=== PATIENT | female | born 1940 | race Caucasian/White ===

== ENCOUNTER 2018-09-24 14:58 | Emergency (ER) | payer MEDICARE ==
[~2018-09-24 14:58] MED LIST: ROCURONIUM BROMIDE INJ 50 MG/5 ML VIAL IV ONE
[2018-09-24] MEDS ORDERED: NORMAL SALINE 1000 ML 1,000 ML IV ONE ×3 (15:14→16:33)
[2018-09-24 15:54] LABS: VENOUS BLOOD BASE EXCESS -11.7 mmol/L; VENOUS BLOOD HCO3 16.3 mmol/L (20-32); VENOUS BLOOD PCO2 44.7 mmHg (35-63)
--- NOTE | 2018-09-24 15:55 | RADIOLOGY REPORT (SQ) ---
EXAM DESCRIPTION: CHEST SINGLE VIEW COMPLETED DATE/TIME: 09/24/2018 3:46 pm REASON FOR STUDY: bed 12 sepsis protocol COMPARISON: None. EXAM PARAMETERS: NUMBER OF VIEWS: One view. TECHNIQUE: Single frontal radiographic view of the chest acquired. RADIATION DOSE: NA LIMITATIONS: None. FINDINGS: LUNGS AND PLEURA: No opacities, masses or pneumothorax. No pleural effusion. MEDIASTINUM AND HILAR STRUCTURES: No masses. Contour normal. HEART AND VASCULAR STRUCTURES: Moderate cardiomegaly BONES: No acute findings. HARDWARE: Old right shoulder replacement prosthesis OTHER: No other significant finding. IMPRESSION: Cardiomegaly. No acute findings TECHNICAL DOCUMENTATION: JOB ID: [id number]- All Rights Reserved Reading location - IP/workstation name: [email or web address]
[2018-09-24 15:56] LABS: VENOUS BLOOD PH 7.18 (7.30-7.42)
[2018-09-24 15:57] LABS: HEMATOCRIT 38.5 % (36.0-47.0); HEMOGLOBIN 12.8 g/dL (12.0-15.5); INTERNATIONAL RATION (INR) 1.31; MEAN CORPUSCULAR HGB CONC 33.2 g/dL (32.0-36.0); MEAN CORPUSCULAR VOLUME 96 fl (80-97); PLATELET COUNT 150 10^3/uL (150-450); PROTHROMBIN TIME 16.9 SEC (11.4-15.4); RED CELL DISTRIBUTION WIDTH 14.6 % (11.5-14.0); WHITE BLOOD COUNT 21.7 10^3/uL (4.0-10.5)
[2018-09-24 16:07] LABS: ALANINE AMINOTRANSFERASE 36 U/L (9-52); ALBUMIN 3.6 g/dL (3.5-5.0); ALKALINE PHOSPHATASE 58 U/L (38-126); ASPARTATE AMINO TRANSFERASE 52 U/L (14-36); BILIRUBIN,DIRECT 0.5 mg/dL (0.0-0.4); BILIRUBIN,TOTAL 0.5 mg/dL (0.2-1.3); BLOOD UREA NITROGEN 44 mg/dL (7-20); CALCIUM 9.3 mg/dL (8.4-10.2); CARBON DIOXIDE 15 mmol/L (22-30); CHLORIDE 105 mmol/L (98-107); CREATINE KINASE 541 U/L (30-135); GLUCOSE 146 mg/dL (75-110); POTASSIUM 4.6 mmol/L (3.6-5.0); SODIUM 139.8 mmol/L (137-145); TOTAL PROTEIN 6.4 g/dL (6.3-8.2)
[2018-09-24 16:19] LABS: CREATINE KINASE MB 4.76 ng/mL (<4.55)
[2018-09-24 16:22] LABS: ANION GAP 20 (5-19)
[2018-09-24 16:23] LABS: TROPONIN I < 0.012 ng/mL
[2018-09-24 16:30] LABS: ABSOLUTE LYMPHOCYTES# (MANUAL) 1.1 10^3/uL (0.5-4.7); ABSOLUTE MONOCYTES # (MANUAL) 0.9 10^3/uL (0.1-1.4); ABSOLUTE NEUTROPHILS# (MANUAL) 19.7 10^3/uL (1.7-8.2); BASOPHILS % (MANUAL) 0 % (0-2); EOSINOPHILS % (MANUAL) 0 % (0-6); LYMPHOCYTES % (MANUAL) 5 % (13-45); MONOCYTES % (MANUAL) 4 % (3-13); SEGMENTED NEUTROPHILS % (MAN) 67 % (42-78); TOTAL CELLS COUNTED 100
[2018-09-24 16:31] LABS: BAND NEUTROPHILS % (MANUAL) 18 % (3-5); PLATELET COMMENT ADEQUATE; TOXIC GRANULATION 2+; TOXIC VACUOLATION PRESENT
[2018-09-24] MEDS ORDERED: LEVOFLOXACIN 750 MG/D5W RTU 750 MG/150 ML RTUPB IV ONE (16:31)
[2018-09-24] MEDS ORDERED: CEFEPIME 2 GM/D5W RTU 2 GM/50 ML RTUPB IV ONE (16:31)
[2018-09-24 16:32] LABS: METAMYELOCYTES % (MANUAL) 6 % (0)
[2018-09-24] MEDS ORDERED: VANCOMYCIN HCL INJ 1000 MG VIAL IV ONE (16:32)
[2018-09-24] MEDS ORDERED: DEXTROSE 5%-WATER 250 ML with NOREPINEPHRINE BITARTRATE 4 MG IV PRN ×2 (16:33)
[2018-09-24] MEDS ORDERED: NOREPINEPHRINE BITARTRATE INJ/PF 4 MG/4 ML SDV IV ONE (16:42)
[2018-09-24 17:43] LABS: ARTERIAL BLOOD BASE EXCESS -14.7 mmol/L; ARTERIAL BLOOD H2CO3 1.06 mmol/L (1.05-1.35); ARTERIAL BLOOD HCO3 12.7 mmol/L (20-24); ARTERIAL BLOOD O2 SATURATION 98.5 % (94-98); ARTERIAL BLOOD PCO2 35.3 mmHg (35-45); ARTERIAL BLOOD PO2 152.3 mmHg (80-100); ARTERIAL BLOOD TOTAL CO2 13.8 mmol/L (21-25)
[2018-09-24 17:45] LABS: ARTERIAL BLOOD FIO2 40%
[2018-09-24 17:46] LABS: ARTERIAL BLOOD PH 7.18 (7.35-7.45)
[2018-09-24] MEDS ORDERED: MIDAZOLAM HCL 50 MG/100 ML RTUINJ ONE (18:49)
[2018-09-24] MEDS ORDERED: ETOMIDATE INJ/PF 20 MG/10 ML SDV IV ONE (19:48)
[2018-09-24] MEDS ORDERED: ROCURONIUM BROMIDE INJ 50 MG/5 ML VIAL IV ONE (19:48)
[2018-09-24 20:02] VITALS: BP 108/90
--- NOTE | 2018-09-24 20:14 | EKG REPORT ---
SEVERITY:- BORDERLINE ECG - SINUS TACHYCARDIA VENTRICULAR PREMATURE COMPLEX BORDERLINE RIGHT AXIS DEVIATION BORDERLINE T ABNORMALITIES, INFERIOR LEADS : Confirmed by: Jenny Villela MD 24-Sep-2018 20:13:43
--- NOTE | 2018-09-24 20:30 | ER Document Report ---
ED General - General Chief Complaint: Shortness Of Breath Stated Complaint: SHORTNESS OF BREATH Time Seen by Provider: 09/24/18 15:04 Primary Care Provider: JONE COOK PA-C [Primary Care Provider] - Follow up as needed TRAVEL OUTSIDE OF THE [place] IN LAST 30 DAYS: No - HPI Notes: Patient is a 78-year-old female brought in to the emergency department for evaluation of weakness. The patient was evidently seen here yesterday. She was complaining of some left hip pain. She was treated with Toradol and Ultram. Throughout the night she became dizzy. She was so weak she could not stand up. On further questioning the patient admits to having intermittent nausea and vomiting over the last several months. At this time she denies any pain of any sort. She states that she has no hip pain. She has some difficulty breathing. She denies any wheezing. She admits to some chills but has had no kyler fevers. No diarrhea. No cuts or rashes. - Related Data Allergies/Adverse Reactions: No Known Allergies Allergy (Verified 09/24/18 15:36) Past Medical History - General Information source: Patient, Relative - Social History Smoking Status: Former Smoker Chew tobacco use (# tins/day): No Frequency of alcohol use: None Drug Abuse: None Family History: Reviewed & Not Pertinent Patient has suicidal ideation: No Patient has homicidal ideation: No - Past Medical History Cardiac Medical History: Reports: Hx Hypercholesterolemia, Hx Hypertension Pulmonary Medical History: Reports: Hx Asthma Renal/ Medical History: Denies: Hx Peritoneal Dialysis Past Surgical History: Reports: Hx Abdominal Surgery - lap band, Hx Orthopedic Surgery - knee/right shoulder Review of Systems - Review of Systems Constitutional: Chills, Malaise, Weakness EENT: No symptoms reported Cardiovascular: No symptoms reported Respiratory: Short of breath Gastrointestinal: No symptoms reported Genitourinary: No symptoms reported Musculoskeletal: See HPI Skin: No symptoms reported Neurological/Psychological: No symptoms reported Physical Exam - Vital signs Vitals: Pulse Ox 91 L 09/24/18 15:15 Notes: Patient afebrile, hypotensive, tachycardic - Notes Notes: 78-year-old female appears her stated age in a moderate amount of distress. She is mildly tachypneic. She is pale and diaphoretic. She has some cyanosis in her nailbeds. Head is normocephalic and appears atraumatic. Pupils are equal, round, reactive to light. Oral mucosa is moist. Heart is tachycardic with normal S1-S2. She is mildly tachypneic, but lungs are clear to auscultation bilaterally. Abdomen is soft, nontender, normoactive bowel sounds. Extremities reveal no cyanosis or clubbing. No posterior calf tenderness. She has multiple surgical scars from knee replacements, fracture repair on the right. There is no signs of erythema, induration, or focal abscess. Peripheral pulses are diminished but equal. Patient is awake and alert, normal mentation. She is oriented x3. Cranial nerves II through XII are grossly intact without focal neurological deficits. Strength is plus 5 out of 5 bilateral upper and lower extremities. Sensation is intact. Reflexes symmetrical. Course - Re-evaluation Re-evalutation: 09/24/18 20:27 Patient presented to the emergency department for evaluation. Upon arrival she was found to be tachycardic and hypotensive. She was started on aggressive fluids. Her respiratory rate remained elevated. Laboratory investigations were consistent with sepsis. She was started on vancomycin, cefepime, Levaquin. She has obvious endorgan damage, as she denies any known history of chronic kidney disease. Labs were remarkable for a marked leukocytosis, and lactic acid of 4.3. An ABG with a pH of 7.18. She had a 15% bandemia. Her creatinine was 4.7 with a BUN of 44. Bicarb is low but potassium was within normal limits. Despite aggressive fluid resuscitation the patient remained hypotensive. Decision was made to start levophed. Holguin catheter was placed, no urine output was achieved. She was also placed on BiPAP, as her work of breathing seemed to increase. She tolerated this for some time, but was still intermittently tachypneic. At [address] Queen. She did have concerns about this patient's significant change in renal function and the possible need for dialysis. At this point we have no availability for dialysis. Given the severity of her illness she recommended transfer. I spoke with Dr. Ferrell, buckle attaching machine operator at [facility], at 1830. He did happily accept the patient. He asked that the patient's airway be secured given her intermittent tachypnea. Decision was made to intubate the patient. Please see separate procedure note. She tolerated this well. He also has a CT scan of the abdomen and pelvis be performed. This has been performed but not yet reviewed by radiology. Images will be pushed to [facility] for their consideration. Patient continues to receive IV fluids. Levophed has been titrated to keep patient's blood pressure above 95 systolic. We will transfer her to [facility] for further care via [facility] helicopter. - Vital Signs Vital signs: Temp Pulse Resp BP Pulse Ox 98.1 F 107 H 15 108/90 H 99 09/24/18 15:16 09/24/18 18:22 09/24/18 19:55 09/24/18 19:55 09/24/18 19:55 - Laboratory Result Diagrams: 09/24/18 15:25 09/24/18 15:25 Laboratory results interpreted by me: 09/24/18 09/24/18 09/24/18 15:25 15:25 15:25 WBC 21.7 H RDW 14.6 H Band Neutrophils % 18 H Lymphocytes % (Manual) 5 L Metamyelocytes % 6 H Abs Neuts (Manual) 19.7 H PT 16.9 H ABG pH ABG pO2 ABG HCO3 ABG Total CO2 ABG O2 Saturation VBG pH VBG HCO3 Carbon Dioxide 15 L Anion Gap 20 H BUN 44 H Creatinine 4.71 H Est GFR ( Amer) 11 L Est GFR (Non-Af Amer) 9 L Glucose 146 H POC Glucose Lactic Acid Direct Bilirubin 0.5 H AST 52 H Creatine Kinase 541 H CK-MB (CK-2) 09/24/18 09/24/18 09/24/18 15:25 15:25 15:25 WBC RDW Band Neutrophils % Lymphocytes % (Manual) Metamyelocytes % Abs Neuts (Manual) PT ABG pH ABG pO2 ABG HCO3 ABG Total CO2 ABG O2 Saturation VBG pH 7.18 L* VBG HCO3 16.3 L Carbon Dioxide Anion Gap BUN Creatinine Est GFR ( Amer) Est GFR (Non-Af Amer) Glucose POC Glucose Lactic Acid 4.3 H Direct Bilirubin AST Creatine Kinase CK-MB (CK-2) 4.76 H 09/24/18 09/24/18 09/24/18 15:34 17:30 19:25 WBC RDW Band Neutrophils % Lymphocytes % (Manual) Metamyelocytes % Abs Neuts (Manual) PT ABG pH 7.18 L* ABG pO2 152.3 H ABG HCO3 12.7 L ABG Total CO2 13.8 L ABG O2 Saturation 98.5 H VBG pH VBG HCO3 Carbon Dioxide Anion Gap BUN Creatinine Est GFR ( Amer) Est GFR (Non-Af Amer) Glucose POC Glucose 141 H Lactic Acid 2.9 H Direct Bilirubin AST Creatine Kinase CK-MB (CK-2) - Diagnostic Test Radiology reviewed: Image reviewed - Second chest x-ray reveals ET tube approximately 2 and half centimeters above dinesh, otherwise no change, as interpreted by myself without the aid of a radiologist, Reports reviewed - EKG Interpretation by Me Additional EKG results interpreted by me: 09/24/18 20:34 Sinus tachycardia with a rate of 109 bpm, PVC noted. Right bundle branch block with nonspecific ST changes. No old study available for comparison. Procedures - Intubation Orotracheal Airway evaluation: Normal anatomy Mallampati Classification: Class 3 Medications: Etomidate, Other Intubation method: Orotracheal - Rocuronium Blade type: Rodriguez Blade size: 3 Equipment used: Glidescope ETT size: 7.5 ETT secured at: Lips ETT secured at (cm): 22 Breath Sounds after Intubation: Equal End tidal CO2 confirmed: Yes Critical Care Note - Critical Care Note Total time excluding time spent on procedures (mins): 40 Discharge - Discharge Clinical Impression: Septic shock, Acute renal failure Condition: Serious Disposition: [facility] Admitting Provider: Dr. Ferrell Unit Admitted: ICU Referrals: JONE COOK PA-C [Primary Care Provider] - Follow up as needed
--- NOTE | 2018-09-24 21:10 | RADIOLOGY REPORT (SQ) ---
CT ABDOMEN PELVIS WITHOUT IV CONTRAST EXAM DATE: 09/24/2018 00:00 HISTORY: Abdominal pain. COMPARISON: None. TECHNIQUE: CT scan of the abdomen and pelvis was performed without IV contrast. This exam was performed according to our departmental dose-optimization program, which includes automated exposure control, adjustment of the mA and/or kV according to patient size and/or use of iterative reconstruction technique. FINDINGS: There is atelectasis/scarring at the lung bases. The liver, gallbladder, spleen, pancreas, and adrenal glands are normal. There is a 4 mm obstructing stone in the proximal left ureter with mild left hydronephrosis and left perinephric stranding. The right collecting system is patent. A Holguin catheter is seen in the urinary bladder. There has been a prior hysterectomy. There are scattered colonic diverticula without surrounding inflammatory changes. No small bowel obstruction. The appendix is not seen. Prior gastric surgery. There is an enteric catheter with the tip in the stomach. No intraperitoneal free air is identified. Trace fluid in the pelvis. There are mild degenerative changes of the spine. The aorta is normal caliber and contains atherosclerotic calcifications. Moderate levocurvature of the lumbar spine centered at L3. Degenerative changes of both hip joints. IMPRESSION: 4 mm obstructing stone in the proximal left ureter with left-sided inflammatory changes.
--- NOTE | 2018-09-24 21:28 | RADIOLOGY REPORT (SQ) ---
EXAM DESCRIPTION: X-ray single view chest. CLINICAL HISTORY: 78 years Female, post intubation COMPARISON: 09/24/2018 at 3:38 PM TECHNIQUE: Single (one) portable x-ray view of the chest performed on 09/24/2018 at 8:30 PM FINDINGS: The lungs are well expanded and are clear. There is no evidence of a pneumothorax. The cardiac silhouette is stable and appears enlarged. The cardiac silhouette may be partially accentuated by the portable technique. The mediastinal contours are normal. No acute osseous abnormality is identified. There are remote postsurgical changes of the right humerus. A right shoulder arthroplasty is noted. There appears to be scoliosis of the thoracolumbar spine. No focal soft tissue abnormalities are seen. Lines and tubes: An endotracheal tube is present which terminates approximately 1.5 cm above the dinesh. The feeding tube extends below the diaphragm and terminates in the right upper quadrant. IMPRESSION: 1. No definite acute intrathoracic disease. 2. Endotracheal tube extends approximately 1.5 cm above the dinesh. 3. Feeding tube extends below the diaphragm. 4. Stable prominence of the cardiac silhouette.
[2018-09-25 10:22] LABS: PATH REVIEW PATHOLOGIST REVIEWED
== END 2018-09-24 21:34 | disposition short-term general hospital (02) ==
LOC: EDBD → ER 14:58
PROC: 0BH17EZ Insertion of Endotracheal Airway into Trachea, Via Natural or Artificial Opening (ICD-10-PCS; principal; 2018-09-24)
DX: A41.9 Sepsis, unspecified organism (principal); R65.21 Severe sepsis with septic shock; N17.9 Acute kidney failure, unspecified; R06.02 Shortness of breath; R53.1 Weakness; R42 Dizziness and giddiness; M25.552 Pain in left hip; R53.81 Other malaise; Z79.899 Other long term (current) drug therapy; Z87.891 Personal history of nicotine dependence; I10 Essential (primary) hypertension; J45.909 Unspecified asthma, uncomplicated
CPT/HCPCS: 93005; 36415; 87040; 82553; 82962; 82803 ×2; 82550; 85025; 85610; 87077; 80053; 84484; 87186; 83605; 71045; 74176; 94660 ×2; 93010; 31500; J3490 ×3; J2250; J7060; J7030; J3370; J0692